=== PATIENT | male | born 1970 | race Caucasian/White ===

== ENCOUNTER 2021-04-02 14:27 | Outpatient (CLI) | payer SELFPAY | END 2021-04-02 14:28 | disposition home or self-care (01) | LOC: SPT 14:27 | PROVIDERS: PCP Nurse Practitioner; Visit Provider Podiatrist Foot & Ankle Surgery | DX: Z46.89 Encounter for fitting and adjustment of other specified devices (principal); S82.831D Other fracture of upper and lower end of right fibula, subsequent encounter for closed fracture with routine healing; X58.XXXD Exposure to other specified factors, subsequent encounter | CPT/HCPCS: 87635; 97760; L4361 ==

== ENCOUNTER 2021-04-08 05:52 | Day surgery (SDC) | payer BC, SELFPAY ==
[2021-04-07 08:44] VITALS: BMI 25.8
--- NOTE | 2021-04-07 09:33 | P.ANESASSM_ITS ---
Pre-Anesthetic Assessment Height/Weight: Height 1.73 m Weight 77.111 kg Operation Date: 04/08/21 07:20 Proposed Procedures p ORIF Ankle/36278(Right) - Cezar Munson DPM Familial anesthetic complications: None Was Beta Laxmi taken within 24 hours: N/A Was Clonidine taken within 24 hours: N/A Social Alcohol and Tobacco Exam alert, oriented x 3 and regular rate & rhythm Airway Submandibular: within normal limits Cervical ROM: within normal limits Mallampati: Class II Dentition: chipped Pulmonary Chronic Obstructive Pulmonary Disease Anesthetic Plan ASA status: 2 Anesthesia: General and Regional (specify below) (Pop blk for postop pain) Medications/Allergies Home Medications Medication Instructions Recorded Confirmed Last Taken Type cam boot #1 ea 04/02/21 04/02/21 Unknown Rx hydrocodone 5 mg-acetaminophen 325 1 tab PO Q6H PRN 7 Days #28 tab 04/02/21 04/07/21 Unknown Rx mg tablet Allergies Allergy/AdvReac Type Severity Reaction Status Date / Time No Known Allergies Allergy Verified 04/02/21 13:07 [facility] Anesthesia Social History Smoking and tobacco status: current every day smoker Data Anesthesia Cardiac Studies: No Data to Display
[2021-04-08] VITALS (16 sets, daily range): BP systolic 150–193; BP diastolic 88–129; PULSE 80–97; RESP 10–18; TEMP 36.2–37.1; O2SAT 92–97
--- NOTE | 2021-04-08 | SCC_ITS ---
Procedure done: Open reduction internal fixation right distal fibular fracture CPT code 67986 1 second of fluoroscopic guidance, for a cumulative dose of 0.03 mGy, was provided to Dr. Munson by the radiology department. C-arm images of the RIGHT tibia fibula were saved for the patient's permanent record. [facility]
--- NOTE | 2021-04-08 06:21 | W.PM.OPSUD ---
Surgery/Procedure H&P Update DATE OF PROCEDURE: April 08, 2021 DATE H&P PERFORMED: 04/02/21 CHANGES TO PREVIOUS DOCUMENTATION: none PREOP DIAGNOSIS: Right distal fibular fracture PLANNED PROCEDURE: Operation Date: 04/08/21 07:00 Proposed Procedures p ORIF Ankle/[id number](Right) - Cezar Munson DPM
--- NOTE | 2021-04-08 06:22 | XR_ITS ---
WS: [id number] ANKLE RIGHT TECHNIQUE: 3 views of the right ankle CLINICAL INFORMATION: preop COMPARISON: None. FINDINGS: Comminuted spiral type fracture involving the distal fibula with mild widening. Mild soft tissue patrice a. Normal ankle mortise. Normal medial malleolus. Talar dome is normal. XR/XR ankle RT min 3V* [id number] IMPRESSION: Comminuted spiral type fracture distal fibula with mild widening
--- NOTE | 2021-04-08 06:34 | XR_ITS ---
WS: [id number] ANKLE RIGHT TECHNIQUE: 3 views of the right ankle CLINICAL INFORMATION: post op orif COMPARISON: None. FINDINGS: Satisfactory postoperative changes plate and screw fixation distal fibula and lateral malleolus. Hard singleton appears in good position. Surgical tory RIGHT ankle soft tissues. XR/XR ankle RT min 3V* [id number] IMPRESSION: Normal for postoperative purposes.
--- NOTE | 2021-04-08 06:35 | PM.OP ---
Operative Report Date of procedure: April 08, 2021 Pre-op diagnosis: Right distal fibular fracture Post-op diagnosis: Same Post-op findings: None Procedure done: Open reduction internal fixation right distal fibular fracture CPT code 01560 Implants: [employer] Specimens removed/disposition: None Pathology: None Surgeon: Cezar Munson D.P.M. Animal Physiology Teacher: Sheela Estimated blood loss: Less than 5 mL 6 minutes IV fluids: None Urine output: None Complications: None Findings: Skip Bedoya B fracture, right Brief History: Pleasant 50-year-old male fell off of a ladder approximately 8 feet high injuring his right ankle 03/29/2021, sustained a Skip Bedoya B. Due to his need to return to work and wanting to reduce risk for delayed healing I recommended open reduction internal fixation right ankle fracture benefits include internal rigid fixation and stabilization of the fracture, early range of motion and anatomic reduction. Risks include but not limited to pain, bleeding, numbness, infection, hardware rotation, hardware failure, delayed union, malunion, nonunion, risk for posttraumatic arthritis of the right ankle need for further surgical intervention. Also risk for deep vein thrombosis, heart attack, stroke. Patient n.p.o. since midnight. Covid screening was negative within the past 7 days. Informed consent signed by patient and myself. Initialed his right lower extremity. No guarantees written, expressed or implied. Patient wishes to proceed. Procedure: Under mild sedation the patient was brought to the operating room and placed on the operating table in supine position. A timeout was performed. Anesthesia was then administered by the anesthesia service. Popliteal block performed per anesthesia service preoperatively. Well-padded pneumatic tourniquet applied to the right high calf. The right lower extremity was then scrubbed, prepped and draped utilizing normal aseptic technique. 3 cc of 0.5% Marcaine plain utilized to anesthetize the right saphenous nerve preoperatively. The right lower extremity was then scrubbed, prepped and draped utilizing normal aseptic technique. Right foot was exanguinated with an Esmarch bandage and a tourniquet inflated to 250 mmHg. Attention was directed to the lateral malleolus of the right ankle where a linear longitudinal incision was made with a #15 blade through skin. Dissection carried down through subcutaneous tissue to the layer of periosteum utilizing sharp and blunt technique. Care was taken to retract and preserve neurovascular and tendinous structures. All bleeders were ligated and cauterized as necessary. Tourniquet was deflated due to a venous tourniquet this was not utilized any further throughout the duration of procedure. Fracture was distracted and curettaged of hematoma followed by saline flush, this was anatomically reduced and temporarily stabilized with [id number] bone reduction clamps. Next utilizing standard AO technique a 2.7 millimeter screw was inserted perpendicular to the fracture site as an interfragmentary screw followed by a one third tubular plate. Utilized 3.5 mm locking screws with excellent bony apposition and compression noted. Fracture was well stabilized. Cotton hook test showed intact syndesmosis. Incision was flushed with saline solution, intraoperative C arm utilized to confirm placement of hardware to be excellent in all 3 planes without violating the ankle mortise, ankle mortise was congruent. Incision was flushed a second time and closed in layered fashion with 2-0 Vicryl at periosteum, 3-0 Vicryl subcutaneous tissue and skin tory. Dressings consisting of Adaptic, 4 x 4's, Kerlix and Ruddy wrap followed by a cam boot. Patient tolerated the procedure and anesthesia well and was transferred to the PACU with vital signs stable and vascular status intact. Following a period of postop monitoring to be discharged home. Was prescribed Percocet to be taken judiciously as needed for pain, advised him to be nonweightbearing, begin baby aspirin/81 mg aspirin once daily starting tomorrow morning while nonweightbearing to help potentially reduce the risk for deep vein thrombosis.
[2021-04-08] MEDS: sodium chloride 0.9% 1,000 ML 30 ML IV (06:38)
[2021-04-08] MEDS: metoprolol tartrate 1 mg/1 mL SDV 5 mL 5 MG IVP (08:26)
--- NOTE | 2021-04-08 08:39 | P.ANESUD_ITS ---
Pre-Anesthetic Update Pre-Anesthetic Assessment: Date of Surgery/Procedure: 04/08/21 Preop Mel gnosis: Right distal fibular fracture Proposed Procedure: Operation Date: 04/08/21 07:00 Proposed Procedures p ORIF Ankle/[id number](Right) - Cezar Munson DPM Any changes to Pre-Anesthetic Assessment?: No Last Intake: Intake Last Liquid Date 04/07/21 Last Liquid Time 20:00 Last Solid Date 04/07/21 Last Solid Time 18:30 Vitals: Temperature 98.4 F 04/08/21 08:08 Temperature Source Temporal Artery S can 04/08/21 08:08 Pulse Rate 88 04/08/21 08:28 Respiratory Rate 18 04/08/21 08:28 Blood Pressure 193/108 04/08/21 08:28 Blood Pressure Sushma n 136 04/08/21 08:28 Pulse Oximetry 95 04/08/21 08:28 Oxygen Delivery Me thod 04/08/21 08:28 Oxygen Flow Rate 6 04/08/21 08:08 Exam: Pre-Anes Outpt Exam: alert, oriented x 3, clear to auscultation bilaterally and regular rate & rhythm Cardiac Studies: No Data to Display
--- NOTE | 2021-04-08 08:39 | ANE.PACU2 ---
Inpatient post-anesthesia follow up: Airway intact: Yes Vital signs: Temperature 98.4 F Pulse Rate 88 Respiratory Rate 18 Blood Pressure 193/108 Pulse Oximetry 95 Oxygen Delivery Me thod Room Air Oxygen Flow Rate 6 Fraction of Inspir ed Oxygen Hydration adequate: Yes Nausea and vomiting: No Pain level: 3 Mental status: Baseline
--- NOTE | 2021-04-08 08:46 | ANES.PROC ---
Anesthesia Procedures Procedure/Date: 04/08/21 Nerve Block ^: Nerve Block 1: Main Anesthesia: general anesthesia Time Out Performed: Yes Consent: requested by attending/covering physician, from patient, risks and benefits reviewed and patient agrees to proceed Nerve block location: popliteal (right) Anesthesia monitors applied: pulse oximetry, EKG, BP cuff and oxygen Nerve block position: supine Anesthetic Used: ropivicaine 0.5% Amount of anesthesia used (mL): 30 Ultrasound used to: recognize landmarks Nerve Stimulator Used?: No Interscalene/Femoral BLK: 4 stimuplex 21 g needle used for position and inplane approach Injection: neg aspiration of heme Patient Tolerated Procedure: well Complications: none
[2021-04-08] MEDS: hyDRALAzine 20 mg/mL INJ 1 mL IVP (08:55)
[2021-04-08] MEDS: oxyCODONE-APAP 10-325 mg Tablet 1 TAB PO (09:26)
--- NOTE | 2021-04-08 15:09 | ANE.PACU2 ---
Inpatient post-anesthesia follow up: Airway intact: Yes Vital signs: Temperature 97.2 F Pulse Rate 91 Respiratory Rate 16 Blood Pressure 150/88 Pulse Oximetry 97 Oxygen Delivery Me thod Room Air Oxygen Flow Rate 6 Fraction of Inspir ed Oxygen Hydration adequate: Yes Nausea and vomiting: No Pain level: 1 Mental status: Baseline Additional Comments: Required metoprolol and hydralazine for BP manageement post op
== END 2021-04-08 09:45 | disposition home or self-care (01) ==
PROVIDERS: PCP Nurse Practitioner; Visit Provider Podiatrist Foot & Ankle Surgery
PROC: (CPT 27792; principal; 2021-04-08 07:00)
DX: S82.401A Unspecified fracture of shaft of right fibula, initial encounter for closed fracture (principal); X58.XXXA Exposure to other specified factors, initial encounter; J44.9 Chronic obstructive pulmonary disease, unspecified; F17.210 Nicotine dependence, cigarettes, uncomplicated; Z79.891 Long term (current) use of opiate analgesic
CPT/HCPCS: 27792; 64450; 73610; 76000; 76942; C1713; J0360; J0690; J1100; J1170; J1885; J2250; J2405; J2704; J2795; J3010; J3490; J7030

== ENCOUNTER → 2021-04-28 08:01 | Outpatient (BNVA) | payer SELFPAY | PROVIDERS: PCP Nurse Practitioner; Visit Provider Podiatrist Foot & Ankle Surgery | DX: Z98.890 Other specified postprocedural states (principal) | CPT/HCPCS: 73610 ==

== ENCOUNTER → 2021-05-07 15:16 | Outpatient (BNVA) | payer BC, SELFPAY | PROVIDERS: PCP Nurse Practitioner; Visit Provider Podiatrist Foot & Ankle Surgery | DX: Z98.890 Other specified postprocedural states (principal) | CPT/HCPCS: 73610 ==

== ENCOUNTER → 2021-05-20 15:27 | Outpatient (BNVA) | payer BC, SELFPAY | PROVIDERS: PCP Nurse Practitioner; Visit Provider Podiatrist Foot & Ankle Surgery | DX: Z98.890 Other specified postprocedural states (principal) | CPT/HCPCS: 73610 ==

== ENCOUNTER 2021-05-20 15:49 | Outpatient (CLI) | payer BC, SELFPAY | END 2021-05-20 15:50 | disposition home or self-care (01) | LOC: SPT 15:50 | PROVIDERS: PCP Nurse Practitioner; Visit Provider Podiatrist Foot & Ankle Surgery | DX: Z47.89 Encounter for other orthopedic aftercare (principal); S82.831D Other fracture of upper and lower end of right fibula, subsequent encounter for closed fracture with routine healing; X58.XXXD Exposure to other specified factors, subsequent encounter | CPT/HCPCS: 97760; L1902 ==

== ENCOUNTER → 2021-06-22 15:17 | Outpatient (BNVA) | payer BC, SELFPAY | PROVIDERS: PCP Nurse Practitioner; Visit Provider Podiatrist Foot & Ankle Surgery | DX: Z98.890 Other specified postprocedural states (principal) | CPT/HCPCS: 73610 ==

== ENCOUNTER 2022-08-16 11:40 | Outpatient (CLI) | payer BC, SELFPAY ==
--- NOTE | 2022-08-16 11:49 | CT_ITS ---
WS: [id number] LDCT LUNG CANCER SCREENING HISTORY: NICOTINE DEPENDENCE, CIGARETTES, UNCOMPLICATED TECHNIQUE: Axial imaging performed from the apices to 1 cm below the costophrenic angles. Coronal and sagittal reformats are submitted with axial MIP series. All CT scans at [facility] use at least one of these dose optimization techniques: automated exposure control; mA and/or kV adjustment per patient size (includes targeted exams where dose is matched to clinical indication); or iterativ e reconstruction. DLP: 86.60 mGy.cm DIvol: Mean CTDIvol: 1.60 (mGy) COMPARISON: None available. Diagnostic quality: Satisfactory Lungs: Mild paraseptal emphysema. No pulmonary mass or nodule. Subsegmental atelectasis at the medial RIGHT lung base. Heart: Normal size heart with no pericardial effusion.. Other findings: No adenopathy. Calcified and noncalcified benign appearing mediastinal and hilar lymp h nodes. Very minimal atherosclerosis aorta. Small hiatal hernia. No adrenal mass. Visualized liver i s normal. CT/CT lung screening [id number] IMPRESSION: LUNG-RADS: 1-Negative FOLLOW UP: 12 Month: Continue annual screening with LDCT OTHER FINDINGS (S MODIFIER): None.
== END 2022-08-16 11:41 | disposition home or self-care (01) ==
PROVIDERS: PCP Physician Assistant; Visit Provider Physician Assistant
DX: Z12.2 Encounter for screening for malignant neoplasm of respiratory organs (principal); F17.210 Nicotine dependence, cigarettes, uncomplicated
CPT/HCPCS: 71271

== ENCOUNTER 2024-05-29 08:37 | Outpatient (CLI) | payer OTHER, SELFPAY ==
--- NOTE | 2024-05-29 08:41 | CT_ITS ---
WS: [id number] LDCT LUNG CANCER SCREENING TECHNIQUE: Noncontrast CT of the chest with coronal and sagittal reformatted images. CLINICAL INFORMATION: NICOTINE DEPENDENCE,CIGARETTES COMPARISON: 2022 DLP: 61.41 mGy.cm DIvol: Mean CTDIvol: 1.20 (mGy) All CT scans at [facility] use at least one of these dose optimization techniques: automated exposure control; mA and/or kV adjustment per patient size (includes targeted exams where dose is matched to clinical indication); or iterative reconstruction. FINDINGS: Normal caliber thoracic aorta. Coronary calcification. No mediastinal or hilar lymphadenopathy. No axillary lymphadenopathy. Chronic emphysematous changes. No new suspicious pulmonary parenchymal normalities. Stable 5 mm nodule LEFT upper lobe along the heart border. Adrenal glands are normal. Mild thoracic air. Mild thoracic kyphosis. CT/CT lung screening [id number] IMPRESSION: LUNG-RADS: 2-Benign Appearance or Behavior FOLLOW UP: 12 Month: Continue annual screening with LDCT
== END 2024-05-29 08:38 | disposition home or self-care (01) ==
LOC: RAD 08:39
PROVIDERS: PCP Physician Assistant; Visit Provider Physician Assistant
DX: Z12.2 Encounter for screening for malignant neoplasm of respiratory organs (principal); F17.210 Nicotine dependence, cigarettes, uncomplicated; I25.10 Atherosclerotic heart disease of native coronary artery without angina pectoris; J43.8 Other emphysema; R91.1 Solitary pulmonary nodule; M40.294 Other kyphosis, thoracic region; R93.89 Abnormal findings on diagnostic imaging of other specified body structures
CPT/HCPCS: 71271